=== PATIENT | male | born 1955 | race Caucasian/White ===

== ENCOUNTER 2021-03-18 09:45 | Day surgery (SDC) | payer MEDICARE, BC ==
--- OUTSIDE RECORDS SUMMARY | 2021-03-18 09:49 | EXTERNAL MEDICAL SUMMARY RPT | Continuity of Care Document ---
:1955 Demographics Phone Unavailable Preferred Language [place] Marital Status Unknown Yarsanism Affiliation Unknown Race Unknown Ethnic Group Unknown Author Organization [facility] Address [address] [place] [address] Phone Care Team Providers Name Role Phone Dannhaur Unavailable Unavailable Problems date description facility [id number] Paresthesia of skin [facility] [id number] [facility]
[2021-03-18] MEDS ORDERED: LACTATED RINGERS 1,000 ML IV ONE (09:52)
[2021-03-18] MEDS ORDERED: MIDAZOLAM 2 MG/2 ML VIAL ONE ×3 (10:53→10:55)
[2021-03-18] MEDS ORDERED: fentaNYL 250 MCG/5 ML VIAL ONE (10:54)
[2021-03-18] MEDS ORDERED: LACTATED RINGERS 500 ML IV ONE (11:35)
[2021-03-18 12:04] VITALS: BP 116/80
== END 2021-03-18 09:46 | disposition home or self-care (01) ==
LOC: SDS 09:45
PROVIDERS: ATTEND Surgery
PROC: 0DBL8ZZ Excision of Transverse Colon, Via Natural or Artificial Opening Endoscopic (ICD-10-PCS; principal; 2021-03-18 10:45)
DX: Z12.11 Encounter for screening for malignant neoplasm of colon (principal); D12.3 Benign neoplasm of transverse colon; K57.30 Diverticulosis of large intestine without perforation or abscess without bleeding; K64.8 Other hemorrhoids; R20.0 Anesthesia of skin; Z87.828 Personal history of other (healed) physical injury and trauma; Z87.891 Personal history of nicotine dependence
CPT/HCPCS: 45380; J3010; J7120